=== PATIENT | female | born 1945 | race Caucasian/White ===

== ENCOUNTER → 2020-03-02 12:02 | Outpatient (BNVA) | payer MEDICARE, OTHER, SELFPAY | PROVIDERS: Visit Provider Family Medicine | DX: Z00.00 Encounter for general adult medical examination without abnormal findings (principal); Z13.220 Encounter for screening for lipoid disorders; R94.6 Abnormal results of thyroid function studies; Z71.89 Other specified counseling | CPT/HCPCS: 80053; 80061; 84443; 85025 ==

== ENCOUNTER → 2020-03-24 10:14 | Outpatient (BNVA) | payer MEDICARE, OTHER, SELFPAY | PROVIDERS: Visit Provider Family Medicine | DX: R73.09 Other abnormal glucose (principal) | CPT/HCPCS: 36416; 82962; 83036 ==

== ENCOUNTER → 2020-06-10 09:14 | Outpatient (BNVA) | payer MEDICARE, OTHER, SELFPAY | PROVIDERS: Visit Provider Family Medicine | DX: R30.0 Dysuria (principal); R35.0 Frequency of micturition; E11.9 Type 2 diabetes mellitus without complications | CPT/HCPCS: 80053; 81003; 87086 ==

== ENCOUNTER → 2020-06-18 13:13 | Outpatient (BNVA) | payer MEDICARE, OTHER, SELFPAY | PROVIDERS: Visit Provider Nurse Practitioner Family | DX: Z11.59 Encounter for screening for other viral diseases (principal); Z20.828 Contact with and (suspected) exposure to other viral communicable diseases | CPT/HCPCS: 87635 ==

== ENCOUNTER → 2021-04-12 08:52 | Outpatient (BNVA) | payer MEDICARE, OTHER, SELFPAY | PROVIDERS: Visit Provider Family Medicine | DX: E11.9 Type 2 diabetes mellitus without complications (principal) | CPT/HCPCS: 80053; 80061; 83036; 85025 ==

== ENCOUNTER 2021-06-05 18:56 | Emergency (ER) | payer MEDICARE, SELFPAY ==
[2021-06-05 19:10] VITALS: BP 118/74; PULSE 76; RESP 18; TEMP 36.4; O2SAT 96; BMI 28.2
--- NOTE | 2021-06-05 19:16 | W.ED.ANIMALB ---
HPI - Animal Bite General: Chief Complaint: Animal Bite Stated Complaint: Has 14 Yellow Jacket Stings Time Seen by Provider: 06/05/21 19:08 History of Present Illness: HPI narrative: 76-year-old female comes in today after being stung by yellow jackets this afternoon. Patient has about 14 stings due to the wasps. Patient denies any difficulty breathing. Patient did take 1 diphenhydramine tablet. Patient appears well. Patient reports tenderness at the site of the sting. Patient does have a history of diabetes type 2. Review of Systems General: Reports: 10 or more systems reviewed and unremarkable except in HPI and below Skin/Breast: Reports: other (Insect stings) PFS ED PFSH: Social History Smoking and tobacco status: never smoked Physical Exam Const: COMMON NORMALS: no acute distress and patient oriented x3 GENERAL APPEARANCE: cooperative HENMT: COMMON NORMALS: normocephalic, TM's normal bilaterally and Normal external nose present HEAD & SCALP: normal to inspection and normocephalic NOSE: Normal external nose present TYMPANIC MEMBRANE: TM's normal bilaterally MOUTH: Normal oral and palatal mucosa present THROAT: posterior oropharynx normal Eye: GENERAL EYE: appearance normal, both eyes and all related structures Neck/C-Spine: COMMON NORMALS: full ROM Chest: COMMONS NORMALS: normal inspection of the chest Resp: COMMON NORMALS: normal respiratory effort EFFORT & INSPECTION: Yes able to speak in complete sentences Cardio: COMMON NORMALS: regular rate and regular rhythm RATE: regular rate RHYTHM: regular rhythm GI: COMMON NORMALS: non-tender : COMMON NORMALS: Yes no CVA tenderness BLADDER/KIDNEY EXAM: Yes no CVA tenderness Back/Pelvis: COMMON NORMALS: no CVA tenderness and thoracic and lumbar spine normal to inspection Extremity: COMMON NORMALS: normal to inspection Neuro: COMMON NORMALS: patient oriented x3 and moves all extremities Psych: COMMON NORMALS: mental status grossly normal and cooperative Skin: COMMON NORMALS: no rashes or lesions noted GENERAL SKIN EXAM: no rashes or lesions noted Course Vital Signs: Vital signs: Vital Signs Temperature 97.6 F 06/05/21 19:10 Pulse Rate 76 06/05/21 19:10 Respiratory Rate 18 06/05/21 19:10 Blood Pressure 118/74 06/05/21 19:10 Pulse Oximetry 96 10/02/21 19:10 MDM - Animal Bite MDM Narrative: Medical decision making narrative: 76-year-old female comes in today with complaints of pain due to wasp stings. Patient been stung about 14 times from [employer]. On exam patient has several areas of redness with punctate lesions to the torso. Respirations are even lungs are clear to auscultation. Posterior pharynx is pink and moist without any signs of swelling. Differential diagnosis includes accidental wasp sting, anaphylaxis, allergic reaction. No signs of serious injury or illness is noted. No signs of anaphylaxis is noted. Vital signs are normal. Patient was given a dose of Toradol for pain. Patient can continue with acetaminophen, ibuprofen, and Benadryl as needed. Patient reported understanding of care plan and need for follow-up or return to the ER for worsening symptoms. Discharge Plan Discharge Patient Disposition: Home Clinical Impression: Accidental wasp sting Condition: Stable Prescriptions: No Action metformin 500 mg tablet extended release 24 hr 500 mg PO DAILY Qty: 30 RF: 3 (DME) blood sugar diagnostic Strip See Rx Instructions .ROUTE .MEDSUPPLY Qty: 200 RF: 3 (DME) blood-glucose meter Misc See Rx Instructions .ROUTE .MEDSUPPLY Qty: 1 RF: 0 metformin 500 mg tablet extended release 24 hr See Rx Instructions .ROUTE .COMPLEX Qty: 90 RF: 0 Hold Instructions: Doctor's Order Discharge Orders: Discharge ED (Routine); Ordered 06/05/21 Ordered By: Marcel Brady Discharge Diet: Usual diet Discharge Activity: Increase activity as tolerated Patient Instructions: Insect Bite or Sting (ED), Opioid Safety Activity Restrictions/Additional Instructions: Use Benadryl as needed for itching or rash. Use ibuprofen for pain and discomfort. You may also use acetaminophen for pain and discomfort. Drink plenty of water with medication. Follow-up with primary care as needed. Return to the ER for new concerns or worsening symptoms. Coding Level of Care Code ED Adult Education Professional for Jakub Edwards
[2021-06-05 19:20] VITALS: RESP 16
[2021-06-05] MEDS: ketorolac 30 mg/mL INJ IM (19:20)
== END 2021-06-05 19:21 | disposition home or self-care (01) ==
LOC: ER 19:19
DX: T63.461A Toxic effect of venom of wasps, accidental (unintentional), initial encounter (principal); Z79.84 Long term (current) use of oral hypoglycemic drugs
CPT/HCPCS: 96372; 99282; J1885

== ENCOUNTER → 2021-12-20 09:33 | Outpatient (BNVA) | payer MEDICARE, OTHER, SELFPAY | PROVIDERS: PCP Family Medicine; Visit Provider Family Medicine | DX: E11.9 Type 2 diabetes mellitus without complications (principal); R07.9 Chest pain, unspecified | CPT/HCPCS: 80053; 80061; 83036; 85025 ==

== ENCOUNTER 2022-01-20 07:17 | Outpatient (CLI) | payer MEDICARE, OTHER, SELFPAY ==
--- NOTE | 2022-01-20 07:33 | MM_ITS ---
WS: [id number] DIAGNOSTIC BILATERAL DIGITAL BREAST TOMOSYNTHESIS MAMMOGRAPHY WITH CAD LEFT breast ultrasound, limited HISTORY: HX OF BREAST Ca; lt BREAST LUMP COMPARISON: 12/11/2013 TECHNIQUE: Bilateral craniocaudad, mediolateral oblique, and mediolateral views are submitted with to mosynthkamran and SM. Spot compression LEFT CC. Computer aided detection utilized. Breast composition: There are scattered areas of fibroglandular density. Volume loss and postsurgical changes in the RIGHT breast from prior breast cancer and treatment. Palpable markers are placed in t he LEFT breast at 10:00 and 3:00 as directed by the patient. No underlying masses or abnormality iden tified. Benign calcifications in each breast. LEFT breast ultrasound, limited. LEFT breast ultrasound is directed by the patient to the areas of palpable concern. At 10:00 and 3:00 no masses are identified. There is a normal appearance to the soft tissues. No increased vascularity . MM/[place] [id number] IMPRESSION: BI-RADS: 2-Benign FOLLOW UP: 1 Year Follow-up
== END 2022-01-20 07:18 | disposition home or self-care (01) ==
PROVIDERS: PCP Family Medicine; Visit Provider Family Medicine
DX: Z85.3 Personal history of malignant neoplasm of breast (principal); N63.22 Unspecified lump in the left breast, upper inner quadrant
CPT/HCPCS: 76642; 77062

== ENCOUNTER → 2022-02-23 14:18 | Outpatient (BNVA) | payer MEDICARE, OTHER, SELFPAY | PROVIDERS: PCP Family Medicine; Visit Provider Internal Medicine Cardiovascular Disease | DX: R07.89 Other chest pain (principal); R06.00 Dyspnea, unspecified; R94.31 Abnormal electrocardiogram [ECG] [EKG]; E11.9 Type 2 diabetes mellitus without complications; R01.1 Cardiac murmur, unspecified; Z79.84 Long term (current) use of oral hypoglycemic drugs | CPT/HCPCS: 93005; 99204; 99205 ==

== ENCOUNTER 2022-04-22 06:19 | Outpatient (CLI) | payer MEDICARE, OTHER, SELFPAY ==
--- NOTE | 2022-04-22 | ECG_ITS ---
[facility] Test Date: 2022-04-22 Pat Name: Itzel Trevino Department: Room: Gender: Female [employer]: : 1945 Requested By: Clement Cade Order Number: [id number] Masha MD: Clement Cade M.D. Interpretive Statements NAME OF STUDY: EXERCISE SESTAMIBI STRESS TEST INDICATION: [Chest Pain] RESULTS TO GLADYS BAINS PROCEDURE: The baseline electrocardiogram showed sinus bradycardia with a poor R wave progression and some nonspecific ST wave changes.. At the baseline, the patient's blood pressure was 117/65 mm Hg with a heart rate of 58. The patient exercised for 7 minutes and 31 seconds on a [standard [facility] protocol]. Patient attained a maximum heart rate of 131 beats per minute(90% of the maximum predicted heart rate) with a blood pressure at the peak exercise of 170/99 mm Hg. The EKG at the peak exercise revealed [address]ressions in leads II, aVF, V4 and V5 []. Patient was complaining of some chest tightness and shortness of breath with exercise. Sestamibi was injected 1 minute prior to the peak exercise During the recovery phase, there were no new changes. The EKG changes almost reverted back to the baseline. There were some nonspecific ST-T changes in the anterolateral leads. Blood pressure at the end of the recovery phase was 144/69 mm Hg with a heart rate of 72 per minute. CONCLUSION: 1. Abnormal EKG response to treadmill exercise suggesting ischemia in the inferior and anterior wall regions 2. Exercise-induced chest tightness and shortness of breath 3. Fair exercise tolerance, attained a maximum of 10.2 METs 4. Sestamibi/Sestamibi perfusion results pending; see separate report. Electronically Signed On 04-22-2022 16:03:31 CDT by Clement Cade M.D. [email or web address]
[2022-04-22 06:56] VITALS: BMI 28.2
--- NOTE | 2022-04-22 07:02 | NMCV_ITS ---
NM arielle perf SPECT r/s* [id number] Itzel Trevino Age: 76 Gender: F : 1945 Exam Date: 04/22/2022 07:50 Ordering Phys: Clement Cade MD ([email or web address]) Technologist: DANA Silva Exam Location: [facility] Indications: CORONARY ANGIOPLASTY STATUS STRESS TEST Please see separate stress test report in [facility] for full findings IMAGE PROTOCOL Rest/Stress 1 Exercise Day Radiopharmaceutical Dose (mCi) Administration Site Administered by Rest: Tc-99m 10.7 IV DANA Schwartz Sestamibi Stress:Tc-99m 32.6 IV DANA Schwartz Sestamilaurie Rest: 22-Apr-2022 60 Discovery 630 Stress: 22-Apr-2022 30 Discovery 630 Radiopharmaceutical was injected at 85 % maximum heart rate. Images obtained in supine and prone position. SPECT RESULTS Technical Quality: Excellent Raw Data Analysis: Normal Image Corrections: No attenuation or motion correction applied Summed Stress Score: 1 Summed Rest Score: 0 Summed Difference Score: 1 PERFUSION FINDINGS Myocardial perfusion imaging revealing a small area of slightly decreased tracer uptake was noted in the basal inferolateral region. No significant reversibility was noted in this region at rest, with the SPECT imaging. FUNCTIONAL RESULTS (calculated via Gated SPECT) Stress Image LV EF (%): 77 Stress EDV (mL):74 TID: 1.06 Stress ESV (mL):17 FUNCTIONAL FINDINGS: Segmental wall motion analysis revealing no gross wall motion abnormalities IMPRESSIONS 1. Myocardial perfusion imaging revealing patchy areas of persistent decreased tracer uptake in the inferolateral region, most likely represent attenuation artifacts. 2. Normal LV action fraction 77%. 3. LV wall motion analysis revealing no gross wall motion normalities. 4. Normal LV volume No similar previous studies are available for comparison Low probability for coronary ischemia, based on the above findings Dr Clement Cade MD [facility] (Electronically Signed) Final Date: 22 April 2022 13:33 S
[2022-04-22 08:46] VITALS: BP 144/69; PULSE 71
== END 2022-04-22 06:20 | disposition home or self-care (01) ==
LOC: CDL 06:22
PROVIDERS: PCP Family Medicine; Visit Provider Internal Medicine Cardiovascular Disease
DX: R07.9 Chest pain, unspecified (principal); Z98.61 Coronary angioplasty status; R94.31 Abnormal electrocardiogram [ECG] [EKG]
CPT/HCPCS: 78452; 93017; A9500

== ENCOUNTER 2022-04-25 08:33 | Outpatient (CLI) | payer MEDICARE, OTHER, SELFPAY ==
--- NOTE | 2022-04-25 08:45 | USCV_ITS ---
Itzel Trevino Age: 76 Gender: F : 1945 Exam Date: 04/25/2022 08:46 Ordering Phys: Clement Cade MD ([email or web address]) Technologist: Yenny Soler [place] [facility] [place]: murmur, CP BP: 118 / 70 HR: 58 Rhythm: Sinus Technical Quality: Adequate MEASUREMENTS (Male / Female) Normal Values 2D ECHO LV Diastolic Diameter PLAX 3.9 cm 4.2 - 5.9 / 3.9 - 5.3 cm LV Systolic Diameter PLAX 2.8 cm IVS Diastolic Thickness 0.9 cm 0.6 - 1.0 / 0.6 - 0.9 cm IVS Systolic Thickness 1.4 cm LVPW Diastolic Thickness 1.2 cm 0.6 - 1.0 / 0.6 - 0.9 cm LVPW Systolic Thickness 1.1 cm LVOT Diameter 2.1 cm LV Ejection Fraction 2D Teich 56.0 % LV Ejection Fraction MOD 2C 62.8 % LV Ejection Fraction 2C AL 61.8 % LA Diameter 3.7 cm LA Width 4.4 cm LA Height 5.6 cm RA Width 2.8 cm RA Height 4.0 cm Aorta at Sinotubular Diameter 3.0 cm IVC Diameter 1.8 cm DOPPLER AV Peak Velocity 161.0 cm/s LVOT Peak Velocity 155.0 cm/s AV Area Cont Eq vti 3.1 cm squared AV Area Cont Eq pk 3.4 cm squared MV Peak Velocity 89.0 cm/s MV Area PHT 3.9 cm squared Mitral E to A Ratio 1.0 MV E' Velocity 48.5 cm/s Mitral E to MV E' Ratio 11.8 Mitral E to LV E' Lateral Ratio 10.8 Mitral E to LV E' Septal Ratio 12.9 TR Peak Velocity 95.0 cm/s TR Peak Gradient 3.6 mmHg Right Atrial Pressure 3.0 mmHg Pulmonary Artery Systolic Pressu 6.6 mmHg PV Peak Velocity 63.0 cm/s RV Acceleration Time 0.1 s RV Ejection Time 0.4 s RV AcT/ET 0.4 FINDINGS Left Ventricle Normal left ventricular size and systolic function, EF 65 %. No regional wall motion abnormalities. Mild left ventricular hypertrophy. Right Ventricle The right ventricle is normal in size and function. Right Atrium Normal right atrial size. Left Atrium Mildly increased left atrial size. Mitral Valve Mild mitral valve regurgitation. Aortic Valve Trace aortic valve regurgitation. Thickened aortic valve. Tricuspid Valve Thickened tricuspid valve. Pulmonic Valve Mild pulmonary valve regurgitation. Pericardium No pericardial effusion. Aorta Normal aortic annulus size. IVC Normal inferior vena cava. CONCLUSIONS Normal left ventricular size and systolic function, EF 65 %. No regional wall motion abnormalities. Mild left ventricular hypertrophy. Mildly increased left atrial size. Mild mitral valve regurgitation. Trace aortic valve regurgitation. Thickened aortic valve. Thickened tricuspid valve. Mild pulmonary valve regurgitation. There is no pericardial effusion. There are no intracardiac masses. Estimated pulmonary artery peak systolic pressure, possibly within normal limits No similar previous studies are available for comparison Dr Clement Cade MD [facility] (Electronically Signed) Final Date: 25 April 2022 19:21 S
== END 2022-04-25 08:34 | disposition home or self-care (01) ==
LOC: RAD 08:34
PROVIDERS: PCP Family Medicine; Visit Provider Internal Medicine Cardiovascular Disease
DX: R06.00 Dyspnea, unspecified (principal); R01.1 Cardiac murmur, unspecified; I08.3 Combined rheumatic disorders of mitral, aortic and tricuspid valves
CPT/HCPCS: 93306

== ENCOUNTER → 2022-08-10 09:29 | Outpatient (BNVA) | payer MEDICARE, OTHER, SELFPAY | PROVIDERS: Visit Provider Family Medicine | DX: E11.9 Type 2 diabetes mellitus without complications (principal) | CPT/HCPCS: 80053; 80061; 83036; 84443; 85025 ==

== ENCOUNTER → 2022-10-13 13:35 | Outpatient (BNVA) | payer MEDICARE, OTHER, SELFPAY | PROVIDERS: PCP Family Medicine; Visit Provider Obstetrics & Gynecology Gynecology | DX: N30.00 Acute cystitis without hematuria (principal) | CPT/HCPCS: 87086 ==

== ENCOUNTER → 2022-11-08 12:53 | Outpatient (BNVA) | payer MEDICARE, OTHER, SELFPAY | PROVIDERS: PCP Family Medicine; Visit Provider Emergency Medicine | DX: N39.0 Urinary tract infection, site not specified (principal) | CPT/HCPCS: 81000 ==

== ENCOUNTER → 2023-04-05 17:15 | Outpatient (BNVA) | payer MEDICARE, OTHER, SELFPAY | PROVIDERS: PCP Family Medicine; Visit Provider Family Medicine | DX: E11.9 Type 2 diabetes mellitus without complications (principal) | CPT/HCPCS: 80053; 80061; 83036; 84443; 85025 ==

== ENCOUNTER → 2023-05-18 09:02 | Outpatient (BNVA) | payer MEDICARE, OTHER, SELFPAY | PROVIDERS: PCP Family Medicine; Visit Provider Family Medicine | DX: M54.50 Low back pain, unspecified (principal) | CPT/HCPCS: 81003 ==

== ENCOUNTER 2023-05-23 12:41 | Outpatient (CLI) | payer MEDICARE, OTHER, SELFPAY ==
--- NOTE | 2023-05-23 13:30 | XR_ITS ---
WS: [id number] SCREENING DEXA SCAN Apps[employer]All CLINICAL INFORMATION: N95.1 - Menopausal and female climacteric states COMPARISON: None. FINDINGS: The L1-L4 bone mineral density measures 0.883 g/cm2. This corresponds to a T score score of -2.5 and Z score of -1.2. Left femoral neck bone mineral density measures 0.803 g/cm2. This corresponds to a T score of -1.6 an d Z score of -0.1. Right femoral neck bone mineral density measures 0.772 g/cm2. This corresponds to a T score -1.9of an d Z score of -0.4. Mean femoral neck bone mineral density measures 0.788 g/cm2. This corresponds to a T score of -1.7 an d Z score of -0.3. 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 Osteopenia femoral necks. Patient's FRAX calculated 10 year probability for major osteoporotic fracture is 15.3% and osteoporot ic hip fracture is 4.5%.
== END 2023-05-23 12:42 | disposition home or self-care (01) ==
PROVIDERS: PCP Family Medicine; Visit Provider Family Medicine
DX: M85.88 Other specified disorders of bone density and structure, other site (principal); N95.1 Menopausal and female climacteric states; Z13.820 Encounter for screening for osteoporosis
CPT/HCPCS: 77080

== ENCOUNTER 2023-06-06 13:46 | Outpatient (CLI) | payer MEDICARE, OTHER, SELFPAY ==
--- NOTE | 2023-06-06 14:33 | MM_ITS ---
WS: [id number] DIAGNOSTIC BILATERAL DIGITAL BREAST TOMOSYNTHESIS MAMMOGRAPHY WITH CAD RIGHT breast ultrasound, limited HISTORY: Z85.3 - Personal history of malignant neoplasm of breast COMPARISON: 01/20/2022, 12/23/2013 TECHNIQUE: Bilateral craniocaudad, mediolateral oblique, and mediolateral views are submitted with to mosynthesis and SM. Computer aided detection utilized. Breast composition: There are scattered areas of fibroglandular density. Volume loss and postsurgical changes in the RIGHT breast. Benign bilateral calcifications. No new masses or calcification. RIGHT breast ultrasound, limited RIGHT breast ultrasound was performed at the patient's request. There is no mammographic abnormality needing additional imaging. There is mild shadowing along the scar site. No mass or increased vascula rity. No additional skin distortion. IMPRESSION: MM/[place] [id number] BI-RADS: 2-Benign FOLLOW UP: 1 Year Follow-up
--- NOTE | 2023-06-06 15:09 | US_ITS ---
WS: [id number] DIAGNOSTIC BILATERAL DIGITAL BREAST TOMOSYNTHESIS MAMMOGRAPHY WITH CAD RIGHT breast ultrasound, limited HISTORY: Z85.3 - Personal history of malignant neoplasm of breast COMPARISON: 01/20/2022, 12/23/2013 TECHNIQUE: Bilateral craniocaudad, mediolateral oblique, and mediolateral views are submitted with to mosynthesis and SM. Computer aided detection utilized. Breast composition: There are scattered areas of fibroglandular density. Volume loss and postsurgical changes in the RIGHT breast. Benign bilateral calcifications. No new masses or calcification. RIGHT breast ultrasound, limited RIGHT breast ultrasound was performed at the patient's request. There is no mammographic abnormality needing additional imaging. There is mild shadowing along the scar site. No mass or increased vascula rity. No additional skin distortion. IMPRESSION: US/US breast RT limited* [id number] BI-RADS: 2-Benign FOLLOW UP: 1 Year Follow-up
== END 2023-06-06 13:47 | disposition home or self-care (01) ==
PROVIDERS: PCP Family Medicine; Visit Provider Family Medicine
DX: Z85.3 Personal history of malignant neoplasm of breast (principal)
CPT/HCPCS: 76642; 77062; G0279

== ENCOUNTER → 2023-06-08 10:04 | Outpatient (BNVA) | payer MEDICARE, OTHER, SELFPAY | PROVIDERS: PCP Family Medicine; Visit Provider Dermatology | DX: D48.5 Neoplasm of uncertain behavior of skin (principal); L57.0 Actinic keratosis; L72.0 Epidermal cyst; L57.8 Other skin changes due to chronic exposure to nonionizing radiation | CPT/HCPCS: 11102; 17000; 99203 ==

== ENCOUNTER → 2023-06-21 08:45 | Outpatient (BNVA) | payer MEDICARE, OTHER, SELFPAY | PROVIDERS: PCP Family Medicine; Visit Provider Dermatology | DX: C44.519 Basal cell carcinoma of skin of other part of trunk (principal) | CPT/HCPCS: 11603; 12032 ==

== ENCOUNTER → 2023-07-05 08:45 | Outpatient (BNVA) | payer MEDICARE, OTHER, SELFPAY | PROVIDERS: PCP Family Medicine; Visit Provider Dermatology | DX: Z48.02 Encounter for removal of sutures (principal) | CPT/HCPCS: 99024 ==

== ENCOUNTER → 2023-11-21 13:08 | Outpatient (BNVA) | payer MEDICARE, OTHER, SELFPAY | PROVIDERS: PCP Family Medicine; Visit Provider Dermatology | DX: L82.1 Other seborrheic keratosis (principal); L57.8 Other skin changes due to chronic exposure to nonionizing radiation; D18.01 Hemangioma of skin and subcutaneous tissue; L72.0 Epidermal cyst; Z85.828 Personal history of other malignant neoplasm of skin | CPT/HCPCS: 99213 ==

== ENCOUNTER → 2023-12-04 09:22 | Outpatient (BNVA) | payer MEDICARE, SELFPAY | PROVIDERS: PCP Family Medicine; Visit Provider Family Medicine | DX: E11.9 Type 2 diabetes mellitus without complications (principal) | CPT/HCPCS: 80053; 80061; 83036; 84443; 85025 ==

== ENCOUNTER → 2024-06-18 11:02 | Outpatient (BNVA) | payer MEDICARE, SELFPAY | PROVIDERS: PCP Family Medicine; Visit Provider Nurse Practitioner Family | DX: L72.0 Epidermal cyst (principal); D69.2 Other nonthrombocytopenic purpura; D18.01 Hemangioma of skin and subcutaneous tissue; L81.4 Other melanin hyperpigmentation; L57.8 Other skin changes due to chronic exposure to nonionizing radiation | CPT/HCPCS: 99213 ==

== ENCOUNTER → 2024-09-02 11:59 | Outpatient (BNVA) | payer MEDICARE, SELFPAY | PROVIDERS: PCP Family Medicine; Visit Provider Nurse Practitioner Family | DX: E11.9 Type 2 diabetes mellitus without complications (principal) | CPT/HCPCS: 80053; 80061; 82607; 83036; 85025 ==

== ENCOUNTER → 2024-11-26 14:31 | Outpatient (BNVA) | payer MEDICARE, SELFPAY | PROVIDERS: PCP Nurse Practitioner Family; Visit Provider Internal Medicine Cardiovascular Disease | DX: R00.2 Palpitations (principal); I10 Essential (primary) hypertension; R01.1 Cardiac murmur, unspecified; R07.9 Chest pain, unspecified | CPT/HCPCS: 99214 ==

== ENCOUNTER 2025-01-07 11:03 | Outpatient (CLI) | payer MEDICARE, SELFPAY ==
--- NOTE | 2025-01-07 11:15 | USCV_ITS ---
Itzel Trevino Age: 79 Gender: F : 1945 Exam Date: 01/07/2025 11:30 Ordering Phys: Jostin Steward MD ([email or web address]) Technologist: ERROL Exam Location: [facility] [place] Indication: CP BP: 102 / 64 HR: 61 Rhythm: Sinus Technical Quality: Adequate MEASUREMENTS (Male / Female) Normal Values 2D ECHO LV Diastolic Diameter PLAX 5.1 cm 4.2 - 5.9 / 3.9 - 5.3 cm IVS Diastolic Thickness 0.8 cm 0.6 - 1.0 / 0.6 - 0.9 cm IVS Systolic Thickness 2.0 cm LVPW Diastolic Thickness 1.0 cm 0.6 - 1.0 / 0.6 - 0.9 cm LVPW Systolic Thickness 1.4 cm LVOT Diameter 2.0 cm LV Ejection Fraction 2D Teich 63.6 % LV Ejection Fraction MOD 4C 62.4 % LV Ejection Fraction MOD 2C 58.3 % LV Ejection Fraction 2C AL 59.0 % LA Diameter 4.1 cm RA Systolic Volume 4C AL 18.5 ml RA Systolic Volume 4C MOD 16.6 ml LA Sys Volume AL 34.9 cm cubed LA Sys Volume Index AL 18.2 cm cubed/m squared Aorta at Sinotubular Diameter 2.6 cm IVC Diameter 1.5 cm M-MODE LA Ao Ratio MM 1.8 AV Cusp Separation MM 1.7 cm DOPPLER AV Peak Velocity 150.7 cm/s LVOT Peak Velocity 146.0 cm/s AV Area Cont Eq vti 2.7 cm squared AV Area Cont Eq pk 3.0 cm squared MV Peak Velocity 85.0 cm/s MV Area PHT 3.3 cm squared Mitral E to A Ratio 1.1 TV Peak Velocity 117.5 cm/s TR Peak Velocity 156.0 cm/s TR Peak Gradient 9.7 mmHg TV Peak E Velocity 56.0 cm/s PV Peak Velocity 101.0 cm/s FINDINGS Left Ventricle Normal left ventricular size, systolic function and wall thickness, with no regional wall motion abnormalities. Left ventricular ejection fraction is estimated at 60 %. Grade I/IV diastolic dysfunction (abnormal relaxation filling pattern), normal to mildly elevated filling pressures. Right Ventricle The right ventricle is normal in size and function. Right Atrium The right atrium is normal in size. Left Atrium Moderately increased left atrial size. Mitral Valve Moderately thickened mitral valve. No mitral valve stenosis. Mild mitral valve regurgitation. Aortic Valve Mild aortic valve calcification. No aortic valve stenosis. Trace aortic valve regurgitation. Tricuspid Valve Structurally normal tricuspid valve without significant stenosis or regurgitation. Pulmonary artery systolic pressure is normal. Pulmonic Valve Structurally normal pulmonic valve without significant stenosis. There is no pulmonic regurgitation. Pericardium Normal pericardium without effusion. Aorta Normal ascending aorta dimension. IVC The inferior vena cava appears normal. CONCLUSIONS Normal left ventricular size, systolic function and wall thickness, with no regional wall motion abnormalities. Left ventricular ejection fraction is estimated at 60 %. Grade I/IV diastolic dysfunction (abnormal relaxation filling pattern), normal to mildly elevated filling pressures. Moderately increased left atrial size. Mild aortic valve calcification. No aortic valve stenosis. Trace aortic valve regurgitation. There is no pericardial effusion. Right atrial pressure is around 5 mm of mercury. Jostin Steward MD (Electronically Signed) Final Date: 19 Jan 2025 22:36 S
== END 2025-01-07 11:04 | disposition home or self-care (01) ==
PROVIDERS: PCP Nurse Practitioner Family; Visit Provider Internal Medicine Cardiovascular Disease
DX: R07.9 Chest pain, unspecified (principal); R93.1 Abnormal findings on diagnostic imaging of heart and coronary circulation; I51.7 Cardiomegaly; I34.0 Nonrheumatic mitral (valve) insufficiency; I35.8 Other nonrheumatic aortic valve disorders
CPT/HCPCS: 93306

== ENCOUNTER → 2025-03-05 09:07 | Outpatient (BNVA) | payer MEDICARE, SELFPAY | PROVIDERS: PCP Nurse Practitioner Family; Visit Provider Nurse Practitioner Family | DX: E11.9 Type 2 diabetes mellitus without complications (principal); M25.562 Pain in left knee; G89.29 Other chronic pain | CPT/HCPCS: 73562; 80053; 80061; 83036; 84443; 85025 ==

== ENCOUNTER → 2025-05-19 11:11 | Outpatient (BNVA) | payer MEDICARE, SELFPAY | PROVIDERS: PCP Nurse Practitioner Family; Visit Provider Nurse Practitioner Family | DX: E11.9 Type 2 diabetes mellitus without complications (principal) | CPT/HCPCS: 80053; 81000; 83036; 85025 ==

== ENCOUNTER → 2025-06-18 10:26 | Outpatient (BNVA) | payer MEDICARE, OTHER, SELFPAY | PROVIDERS: PCP Nurse Practitioner Family; Visit Provider Nurse Practitioner Family | DX: L72.0 Epidermal cyst (principal); D69.2 Other nonthrombocytopenic purpura; L85.3 Xerosis cutis; D18.01 Hemangioma of skin and subcutaneous tissue; L57.8 Other skin changes due to chronic exposure to nonionizing radiation; L81.4 Other melanin hyperpigmentation; Z08 Encounter for follow-up examination after completed treatment for malignant neoplasm; Z85.828 Personal history of other malignant neoplasm of skin | CPT/HCPCS: 99213 ==